=== PATIENT | female | born 1965 | race Two or more races ===

== ENCOUNTER 2025-03-15 08:18 | Emergency (ER) | payer MEDICAID, SELFPAY ==
[2025-03-15 08:26] VITALS: BP 169/85; BP 182/78; PULSE 59; RESP 17; TEMP 36.9; O2SAT 98; BMI 23.3
--- NOTE | 2025-03-15 08:57 | PD.EDDENTL ---
ED Dental RME/HPI General Chief complaint: Dental/Oral/Throat Stated complaint: Swollen left cheek X 2 days Time Seen by Provider: 03/15/25 08:27 Source: patient Arrival date/time: 03/15/25 08:18 59-year-old female with no known medical history presents to the emergency room with a chief complaint of swelling to her left cheek and dental pain x 2 days Mode of arrival: ambulatory Limitations: no limitations Related Data Previous Rx's ?Medication ?Instructions ?Recorded clindamycin HCl 300 mg capsule 300 mg PO TID 7 days #21 caps 03/15/25 ibuprofen 800 mg tablet 800 mg PO Q8H #30 tabs 03/15/25 Allergies Allergy/AdvReac Type Severity Reaction Status Date / Time No Known Drug Allergies Allergy Verified 03/15/25 08:23 Review of Systems Review of Systems Systems Reviewed: All systems reviewed, normal except as documented Constitutional Constitutional: Reports system reviewed and no additional complaints, except as documented, Denies fatigue, Denies fever(s), Denies headache(s) and Denies weakness Eyes Eyes: Reports system reviewed and no additional complaints, except as documented, Denies blurry vision and Denies change in vision ENT Ears, Nose, Mouth, and Throat: Reports system reviewed and no additional complaints, except as documented, Reports dental pain, Denies otalgia, Denies headache(s), Denies nasal congestion, Denies throat swelling and Denies vertigo Cardiovascular Cardiovascular: Reports system reviewed and no additional complaints, except as documented, Denies chest pain, Denies dyspnea and Denies dyspnea on exertion Respiratory Respiratory: Reports system reviewed and no additional complaints, except as documented, Denies chest congestion, Denies cough, Denies dyspnea, Denies dyspnea on exertion and Denies wheezing Gastrointestinal Gastrointestinal: Reports system reviewed and no additional complaints, except as documented, Denies abdominal pain, Denies cramping, Denies nausea and Denies vomiting Genitourinary Genitourinary: Reports system reviewed and no additional complaints, except as documented Musculoskeletal Musculoskeletal: Reports system reviewed and no additional complaints, except as documented and Denies back pain Integumentary/Breasts Skin/Breast: Reports system reviewed and no additional complaints, except as documented and Denies wounds Neurologic Neurologic: Reports system reviewed and no additional complaints, except as documented, Denies confusion, Denies headache(s), Denies lack of coordination, Denies vertigo and Denies weakness Psychiatric Psychiatric: Reports system reviewed and no additional complaints, except as documented, Denies anxiety, Denies confusion, Denies depression, Denies paranoia, Denies suicidal ideation and Denies tactile hallucinations Endocrine Endocrine: Reports system reviewed and no additional complaints, except as documented and Denies fatigue Hematologic/Lymphatic Hematologic/Lymphatic: Reports system reviewed and no additional complaints, except as documented and Denies lymphadenopathy Allergic/Immunologic Allergic/Immunologic: Reports system reviewed and no additional complaints, except as documented, Denies throat swelling, Denies urticaria and Denies wheezing ED Exam General Limitations: Present no limitations General appearance: Present alert and in no apparent distress Head Head exam: Present atraumatic Eye Eye exam: Present normal appearance, PERRL and EOMI ENT ENT exam: Present normal exam, normal oropharynx and mucous membranes moist Expanded ENT Exam Mouth exam: Present tongue normal; Absent drooling, trismus, lip swelling or tongue swelling Teeth exam: Present dental caries, fractured tooth # and dental tenderness # Teeth numbered:  1. Fractured and Dental Tenderness Throat exam: Present normal inspection Neck Neck exam: Present normal inspection, full ROM and trachea midline Chest Chest inspection: Present normal inspection and symmetric chest wall rise Respiratory Respiratory exam: Present normal lung sounds bilaterally Cardiovascular Cardiovascular exam: Present regular rate, normal rhythm and normal heart sounds Abdominal Exam Abdominal exam: Present soft and normal bowel sounds Extremities Exam Extremities exam: Present normal inspection and full ROM Back Exam Back exam: Present normal inspection and full ROM Neurological Exam Neurological exam: Present alert, oriented X3 and CN II-XII intact Psychiatric Psychiatric exam: Present normal affect and normal mood Skin Skin exam: Present warm, dry, intact and normal color Course Quality Measures none Orders Category Date Time Status Clindamycin Vial [Cleocin vial] Med 03/15/25 08:48 Discontinued 600 mg IM X1 ONE Ketorolac Inj [Toradol Inj] Med 03/15/25 08:48 Discontinued 30 mg IM X1 ONE Vital Signs Vital signs: Vital Signs Temperature 98.4 F 03/15/25 08:26 Pulse Rate 59 L 03/15/25 08:26 Respiratory Rate 17 03/15/25 08:26 Blood Pressure 182/78 H 03/15/25 08:26 Pulse Oximetry (%) 98 03/15/25 08:26 Oxygen Delivery Method Room Air 03/15/25 08:26 Dental / Oral MDM Narrative MDM Narrative:: 59-year-old female with no known medical history presents to the emergency room with a chief complaint of swelling to her left cheek and dental pain x 2 days Patient is hemodynamically stable and in no apparent distress. Patient is afebrile nontachycardic nontachypneic Physical examination shows tenderness and pain to tooth #12 and 13. There is a fractured tooth and the swelling and tenderness is above the tooth and the gums. Patient states this has been going on for the last 2 days and has progressively gotten worse. Pain medication and antibiotics are sent to the patient's pharmacy Patient was educated to follow-up with her dentist and return to the emergency room for any evidence of worsening signs or symptoms Patient data External records reviewed:: [facility] previous records Clinical information provided by:: patient Social determinants that could affect healthcare access:: none Patient has the following chronic illnesses:: No chronic illness How is presenting disease/condition affected by chronic disease/condition?: no chronic disease Evaluation data The following diagnostics were reviewed and interpreted by me:: lab results and radiology exam(s) Lab and/or radiology exams considered but not ordered:: Labs radiology exams considered and ordered Interpretation Summary: N/A Medications / Prescriptions Medications or Prescriptions considered but not ordered:: Medication given Medication administrations:: Medication Administration History Discontinued Medications Clindamycin Phosphate (Clindamycin Phos Inj 150 Mg/Ml Vial 6 Ml) 600 mg IM X1 ONE Stop: 03/15/25 08:49 Last Admin: 03/15/25 09:17 Dose: 600 mg Documented By: Ketorolac Tromethamine (Ketorolac Inj 60 Mg/2 Ml Vial) 30 mg IM X1 ONE Stop: 03/15/25 08:49 Last Admin: 03/15/25 09:21 Dose: Not Given Documented By: Non-Admin Reason: Patient Refused Medication given Consultations Consultation(s) initiated? (list below): No Diagnosis Dental Differential Diagnosis: gingival abscess, dental caries, toothache, dental abscess and fracture of tooth Most likely diagnosis given after review of the tests above:: Fracture of tooth Admission Indicated Admission indicated?: not indicated Admission Request Was there a request for admission?: No Disposition Plan Disposition Plan: Discharge Discharge Attestation Discharge Attestation: The patient and all family members were given an opportunity to ask questions and understood the discharge instructions. Discharge instructions specifically effects, indications for sooner follow up or return to the emergency department, and the expected course of current diagnosis. Patient condition: Stable Discharge Plan Plan Patient Disposition: HOME (Self Care) Discharge Disposition comment: Stable Prescriptions/Referrals Prescriptions/Med Rec: New clindamycin HCl 300 mg capsule 300 mg PO TID 7 Days Qty: 21 0RF ibuprofen 800 mg tablet 800 mg PO Q8H Qty: 30 0RF Problem List Clinical Impression: Fracture of tooth, Pain, dental Patient/Caregiver Discharge Instructions Education Materials: ED Dental Pain Additional Instructions: Por favor, consulte con andrade dentista en las pr?ximas 24 a 48 horas. El medicamento fue enviado a andrade farmacia, por favor rec?jalo y t?jo phan se indica. Si hay alguna evidencia de empeoramiento de los signos o s?ntomas, regrese a la merline de emergencias inmediatamente. Print Language: Japanese Stand Alone Forms: Debbie Award Info., Work/School Release, Patient Portal Info Letter PA/INTERNAL REVENUE SERVICE AGENT Supervising Physician PA/INTERNAL REVENUE SERVICE AGENT Supervising Physician: Dr. Longoria
[2025-03-15] MEDS: CLINDAMYCIN PHOS INJ 150 MG/ML VIAL 6 ML 600 MG IM (09:17)
== END 2025-03-15 09:40 | disposition home or self-care (01) ==
LOC: SERX 09:45
PROVIDERS: Emergency Provider Nurse Practitioner Family; PCP Physician Assistant
DX: S02.5XXA Fracture of tooth (traumatic), initial encounter for closed fracture (principal); X58.XXXA Exposure to other specified factors, initial encounter
CPT/HCPCS: 99283; J0736